=== PATIENT | female | born 1995 | race Caucasian/White ===

== ENCOUNTER 2025-01-10 09:50 | Outpatient (AMB) | payer OTHER, MEDICAID, SELFPAY ==
[2025-01-10 10:24] VITALS: BP 134/77; PULSE 77; RESP 17; TEMP 36.7; O2SAT 99; BMI 26.6
--- NOTE | 2025-01-10 10:24 | AMB.OBINITIA ---
Vital Signs 01/10/25 10:24 Height 1.63 m Height Method Measured Weight 70.307 kg Weight Measurement Method Standing Scale BMI 26.6 BP 134/77 H Blood Pressure Source Automatic Cuff Blood Pressure Location Right Upper Arm Position Sitting Respiration 17 Pulse 77 Pulse Source Monitor Temp 98.1 F Temp Source Temporal Artery Scan Pulse Oximetry (%) 99 Oxygen Delivery Method Room Air Allergies/Home Meds Allergies & Medications Allergies Latex, Natural Rubber Allergy (Unknown, Verified 06/13/22 17:24) Medication Reconciliation albuterol 90 mcg/actuation aerosol inhaler 90 mcg inhalation PRN PRN Bronchospasm 06/13/22 [History Confirmed 01/10/25] omeprazole 20 mg capsule,delayed release 20 mg PO QDAY 06/13/22 [History Confirmed 01/10/25] vitamin-ferrous fumarate 28 mg iron-folic acid 800 mcg tablet ( Vitamins with Minerals) 1 tab PO QDAY 06/13/22 [History Confirmed 01/10/25] acyclovir 200 mg/5 mL oral suspension 200 mg PO TID 01/10/25 [History Confirmed 01/10/25] levothyroxine 50 mcg tablet 50 mcg PO QDAY 01/10/25 [History Confirmed 01/10/25] Intake Visit Data Collection New Patient or Established: New Patient not seen in past [address] [facility] (considered New) Reason for Visit:: PRE CONFIRMATION\PT Consent obtained for Telemed Visit: No Seen by Clinical Staff ONLY (RN/MA): No Retail Sales Professional Required: No Do You Feel Safe at Home: Yes Authorities Contacted: N/A PCP or OBGYN visit in last 3 months: Yes Date of Last PCP or OBGYN visit: 06/15/22 Hx Now: Yes Are you currently on any form of Control: No Last menstrual period: 11/19/24 Pain Present Currently: No Pain Scale Used: Byrnes-Dowling/Numerical Pain scale:: 0 Smoking Status Smoking Status: Never smoker Questionnaires PHQ-9 PHQ-2 Over the last 2 weeks, how often have you been bothered by any of the following problems? 1. Little interest or pleasure in doing things: not at all 2. Feeling down, depressed, or hopeless: not at all Total score: 0 PHQ-9 3. Trouble falling or staying asleep, or sleeping too much: Not at all 4. Feeling tired or having little energy: Not at all 5. Poor appetite or overeating: Not at all 6. Feeling bad about yourself - or that you are a failure or have let yourself or your family down: Not at all 7. Trouble concentrating on things, such as reading the newspaper or watching television: Not at all 8. Moving or speaking so slowly that other people could have noticed? - Or the opposite - being so fidgety or restless that you have been moving around a lot more than usual: not at all 9. Thoughts that you would be better off or of hurting yourself in some way: Not at all Total score: 0 If you checked off any problems, how difficult have these problems made it for you to do your work, take care of things at home, or get along with other people?: not difficult at all Source: Developed by Drs. Yang Prescott, Aydee House, Mike Servin and colleagues, with an educational mike from [employer]. 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 Her 2-1/2-year-old daughter is also present. OB Ultrasound Indication Indication: Size dates viability OB Ultrasound Ultrasound technique: transvaginal Gestational sac assessment: Presence, location, size, shape: Live intrauterine with a crown-rump length of 0.76 cm corresponding to 6 weeks 5 days is present. 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 Sosa at [facility] with a mediolateral episiotomy. Other Relevant History: Hypothyroid on Synthroid 50 mcg a day GERD on omeprazole 40 mg a day History of cold sores on acyclovir 400 mg a day Mild asthma on albuterol inhaler daily OB Initial Visit OB Flowsheet OB Flowsheet Initial Weight: 70 kg Date <del>?</del> EGA Weight BP Alb Glu CTX Pres Fundal ht FHR Mov Dilation Station Effacement Hx Notes Visit Note 01/10/25 <del>?</del> 6w 5d 70.307 kg (+306.817 g) 134/77 95 New OB. Check official ultrasound in 2 weeks. Check labs. Menstrual History Menstrual reliability: definite Flow: heavy Menstrual regularity: regular Monthly: Yes Age at menarche: 14 On control pills at conception: No OB History : 2 Para: 1 Hx Total # of Abortions (Spontaneous & Elective): 1 # of Living Children: 1 Infection History & Risk Evaluation History of STDs: none HIV risk evaluation: low risk Hepatitis B risk evaluation: low risk Patient or partner has history of Genital Herpes: No Genetic Screening & History Genetic Screening/Teratology Counseling - Includes patient, baby's father, or anyone in either family with: 1. Patient's age 35 years or older as of estimated date of delivery: No 2. Thalassemia (Libyan, Indonesian, Mediterranean, or Background); MCV less than 80: No 3. Neural Tube Defect (Meningomyelocele, Spina Bifida, or Anencephaly): No 4. Congenital Heart Defect: No 5. Down Syndrome: No 6. Edmund-Sachs (Ashkenazi [place], Cajun, Bel[place]ian [place]): No 7. Cassie Disease (Ashkenazi Holiness): No 8. Familial Dysautonomia (Ashkenazi Holiness): No 9. Sickle Cell Disease or Trait (): No 10. Hemophilia or other blood disorders: No 11. Muscular Dystrophy: No 12. Cystic Fibrosis: No 13. Pierre's Chorea: No 14. Mental Retardation/Autism: No 15. Other inherited genetic or chromosomal disorder: No 16. Maternal Metabolic Disorder (EG,TYPE 1 Diabetes, PKU): No 17. Patient or baby's father had a child with defects not listed above: No 18. Recurrent loss or a stillbirth: No 19. Medications (including supplements, vitamins, herbs or otc drugs)/illicit/recreational drugs/alcohol since last menstrual period: No 20. Any other: No Infection History 1. Live with someone with TB or exposed to TB: No 2. Rash or viral illness since last menstrual period: No 3. Hepatitis B,C: No Other (see comments) Source: [employer] Review of Systems Review of Systems Narrative Review of Systems: Plus nausea and vomiting. No vaginal bleeding or cramping. Exam General Limitations: no limitations General Appearance: alert, in no apparent distress, comfortable, cooperative and healthy appearing Chest Chest inspection: Present normal inspection and symmetric chest wall rise Resp Respiratory exam: Present normal lung sounds bilaterally Card Cardiovascular exam: Present regular rate, normal rhythm and normal heart sounds Abdominal Abdominal exam: Present soft and normal bowel sounds Psych Psychiatric exam: Present normal affect and normal mood Skin Skin exam: Present warm, dry, intact and normal color Office Procedures OB Clinic LOC & Office Proc's Nursing/Assessment Patient Status: Established Patient OB Clinic Nursing Assessment: Medication Reconciliation, Update PMH in EMR and Vital Signs OB Clinic Coordination of Care: Complex Care and Chronic Disease 1-5, Consent,records obtained, informed consent, Education Simp Pt/Fam and Results/Orders obtained Special Needs: Heart tones Established Patient Charge Established Patient Point Assignment: 110 Established Patient Point Charge: EP Level 3 (80-115) Results Urine HCG Urine HCG Positive Last Edit by Ita Landon MA on 01/10/25 10:37 Assessment & Plan Diagnosis / Problem List (1) : Status: Acute Qualifiers: Weeks of gestation: less than 8 weeks Qualified Code(s): Z3A.01 - Less than 8 weeks gestation of Plan: Order labs. Order official ultrasound for 2 weeks. Follow-up in 4 weeks. (2) Nausea and vomiting during : Status: Acute Plan: Diclegis and Zofran prescribed, take gummy prenatals for now. Small meals. Manage GERD with medications. (3) Hypothyroidism affecting : Status: Acute Qualifiers: Trimester: first trimester Qualified Code(s): O99.281 - Endocrine, nutritional and metabolic diseases complicating , first trimester; E03.9 - Hypothyroidism, unspecified Plan: On 50 mcg of Synthroid. Has endocrine in [place] and will zoom with her provider in 2 weeks. Her endocrine will adjust thyroid as needed and check levels during . (4) Asthma complicating in first trimester: Status: Acute Plan: Refill albuterol inhaler. Additional Plan Follow Up: 4 Weeks
== END 2025-01-10 11:24 | disposition home or self-care (01) ==
PROVIDERS: PCP Obstetrics & Gynecology; Referring Provider Obstetrics & Gynecology; Supervising Provider Internal Medicine; Visit Provider Obstetrics & Gynecology
DX: O09.891 Supervision of other high risk pregnancies, first trimester (principal); O99.281 Endocrine, nutritional and metabolic diseases complicating pregnancy, first trimester; E03.9 Hypothyroidism, unspecified; O99.511 Diseases of the respiratory system complicating pregnancy, first trimester; J45.909 Unspecified asthma, uncomplicated; O99.611 Diseases of the digestive system complicating pregnancy, first trimester; K21.9 Gastro-esophageal reflux disease without esophagitis; O21.9 Vomiting of pregnancy, unspecified; Z3A.01 Less than 8 weeks gestation of pregnancy; Z79.899 Other long term (current) drug therapy; Z79.890 Hormone replacement therapy
CPT/HCPCS: 99213; G0463

== ENCOUNTER → 2025-01-10 | Outpatient (CLI) | payer OTHER, MEDICAID, SELFPAY ==
[2025-01-10 12:04] LABS: Misc Send Out* See Sep Rpt
[2025-01-10 12:54] LABS: Basophils # (Auto) 0.1 Thou/mm3 (0.0-0.2); Basophils % (Auto) 1 % (0-2.5); Eosinophils # (Auto) 0.1 Thou/mm3 (0.0-0.5); Eosinophils % (Auto) 1 % (0-10); Hematocrit 38.0 % (36.0-46.0); Hemoglobin 13.7 g/dL (12.0-16.0); Immature Granulocytes Auto 0.05 Thou/mm3 (0.00-0.00); Lymphocytes # (Auto) 3.1 Thou/mm3 (1.0-4.8); Lymphocytes % (Auto) 27 % (10-50); Mean Corpuscular HGB Conc 36.1 g/dl (31.0-37.0); Mean Corpuscular Hemoglobin 31.1 pg (25.0-35.0); Mean Corpuscular Volume 86 fL (80-100); Monocytes # (Auto) 0.5 Thou/mm3 (0.0-0.8); Monocytes % (Auto) 5 % (0-12); Neutrophils # (Auto) 7.5 Thou/mm3 (1.8-7.7); Neutrophils % (Auto) 66 % (37-80); Nucleated Red Blood Cell # 0.00 Thou/mm3 (0.00-0.00); Nucleated Red Blood Cell % 0 /100 WBC (0); Platelet Count 340 Thou/mm3 (140-440); RDW Standard Deviation 38.2 fL (36.4-46.3); Red Blood Count 4.41 Miln/mm3 (4.00-5.20); White Blood Count 11.3 Thou/mm3 (3.6-11.0)
[2025-01-10 13:25] LABS: Syphilis Nonreactive (Nonreactive)
[2025-01-10 13:49] LABS: Hepatitis B Surface Antigen Non Reactive (Non React); Hepatitis C Antibody Non Reactive (Non React); Rubella, IgG Antibody Reactive (Immune)
[2025-01-10 15:45] LABS: Chlamydia trachomatis PCR Negative (Not Detect); Neisseria Gonorrhoeae DNA PCR Negative (Not Detect); Trichomonas Negative (Negative)
[2025-01-10 17:06] LABS: HIV (1&2) Antibody Rapid Non-Reactive
[2025-01-14 06:44] LABS: Sm Antibody* <1.0 NEG AI (<1.0 NEGATIVE)
== END | disposition home or self-care (01) ==
PROVIDERS: PCP Nurse Practitioner Family; Referring Provider Obstetrics & Gynecology; Visit Provider Obstetrics & Gynecology
DX: Z01.89 Encounter for other specified special examinations (principal)
CPT/HCPCS: 36415; 81220; 85025; 86235; 86703; 86762; 86780; 86803; 86850; 86900; 86901; 87086; 87340; 87491; 87591; 87661

== ENCOUNTER 2025-02-18 10:50 | Outpatient (AMB) | payer OTHER, MEDICAID, SELFPAY ==
[2025-02-18 11:04] VITALS: BP 118/72; PULSE 92; RESP 16; TEMP 36.2; O2SAT 98; BMI 26.6
--- NOTE | 2025-02-18 11:04 | OBCLNT_ITS ---
Vital Signs 02/18/25 11:04 Height 1.63 m Height Method Stated Weight 70.76 kg Weight Measurement Method Standing Scale BMI 26.6 BP 118/72 Blood Pressure Source Automatic Cuff Blood Pressure Location Left Upper Arm Position Sitting Respiration 16 Pulse 92 Pulse Source Monitor Temp 97.2 F Temp Source Oral Pulse Oximetry (%) 98 Oxygen Delivery Method Room Air Allergies/Home Meds Allergies & Medications Allergies Latex, Natural Rubber Allergy (Unknown, Verified 02/18/25 11:05) Medication Reconciliation albuterol 90 mcg/actuation aerosol inhaler 90 mcg inhalation PRN PRN Bronchospasm 06/13/22 [History Confirmed 02/18/25] omeprazole 20 mg capsule,delayed release 20 mg PO QDAY 06/13/22 [History Confirmed 02/18/25] vitamin-ferrous fumarate 28 mg iron-folic acid 800 mcg tablet ( Vitamins with Minerals) 1 tab PO QDAY 06/13/22 [History Confirmed 02/18/25] acyclovir 200 mg/5 mL oral suspension 200 mg PO TID 01/10/25 [History Confirmed 02/18/25] levothyroxine 50 mcg tablet 50 mcg PO QDAY 01/10/25 [History Confirmed 02/18/25] Intake Visit Data Collection New Patient or Established: Established Patient (seen at [facility] within 3 years) Reason for Visit:: OBC Seen by Clinical Staff ONLY (RN/MA): No Chemical Lab Technician Required: No Do You Feel Safe at Home: Yes Authorities Contacted: N/A PCP or OBGYN visit in last 3 months: Yes Date of Last PCP or OBGYN visit: 01/10/25 Hx Now: Yes Are you currently on any form of Control: No Pain Present Currently: No Pain Scale Used: Byrnes-Dowling/Numerical Pain scale:: 0 Smoking Status Smoking Status: Never smoker Questionnaires Covid-19 Vaccine Questionnaire Has patient been vacinated for Covid-19 Have you been vacinated for Covid-19: Yes PHQ-9 PHQ-2 Over the last 2 weeks, how often have you been bothered by any of the following problems? 1. Little interest or pleasure in doing things: not at all 2. Feeling down, depressed, or hopeless: not at all Total score: 0 PHQ-9 3. Trouble falling or staying asleep, or sleeping too much: Not at all 4. Feeling tired or having little energy: Not at all 5. Poor appetite or overeating: Not at all 6. Feeling bad about yourself - or that you are a failure or have let yourself or your family down: Not at all 7. Trouble concentrating on things, such as reading the newspaper or watching television: Not at all 8. Moving or speaking so slowly that other people could have noticed? - Or the opposite - being so fidgety or restless that you have been moving around a lot more than usual: not at all 9. Thoughts that you would be better off or of hurting yourself in some way: Not at all Total score: 0 If you checked off any problems, how difficult have these problems made it for you to do your work, take care of things at home, or get along with other people?: not difficult at all Source: Developed by Drs. Yang Prescott, Aydee House, Mike Servin and colleagues, with an educational mike from [employer]. 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 Check official ultrasound in 2 weeks. Check labs. 02/18/25 -?-?-?-?-?-?-?-?-?-?-?-?- 12w 2d 70.76 kg (+760.409 g) 118/72 13 145 +FM No UCs or VB Desires NIPT RYAN Calculator Estimated Delivery Date Method Current WG Current Estimate 08/31/25 Ultrasound #1 12w 2d Other Estimates 08/26/25 LMP (Uncertain) 13w 0d Expected Delivery Route/Plan 29-year-old -0-0-1 History of vaginal delivery x 1 Anticipate vaginal delivery Notes Visit Date: 02/18/25 Last Updated by: Ines Nielsen (OB Clinic)MD [facility] labs: O+/antibody negative/ hepatitis B surface antigen negative /GC negative /Chlamydia negative /rubella immune/ RPR nonreactive/ hepatitis C- ultrasound done today revealing a 13-week IUP With an EDC of 08/26/2024. Visit Date: 01/10/25 Last Updated by: Ines Nielsen (OB Clinic)MD Patient has an endocrine managing her thyroid in [place]. She needs a refill on her albuterol inhaler. She also was nauseous and I will prescribe Diclegis and Zofran. Office Procedures OB Clinic LOC & Office Proc's Nursing/Assessment Patient Status: Established Patient OB Clinic Nursing Assessment: Medication Reconciliation, Update PMH in EMR and Vital Signs OB Clinic Coordination of Care: Education Complex Pt/Fam, Consent,records obtained, informed consent, Lab and Imaging orders, Results/Orders obtained and Staff clarify orders Special Needs: Heart tones Established Patient Charge Established Patient Point Assignment: 115 Established Patient Point Charge: EP Level 3 (80-115) Assessment & Plan Diagnosis / Problem List (1) Hypothyroidism affecting : Status: Acute Qualifiers: Trimester: first trimester Qualified Code(s): O99.281 - Endocrine, nutritional and metabolic diseases complicating , first trimester; E03.9 - Hypothyroidism, unspecified Plan: Has endocrinology provider in [place] managing (2) Nausea and vomiting during : Status: Acute Plan: Has Diclegis. Doing well. (3) : Status: Acute Qualifiers: Weeks of gestation: 13 weeks Qualified Code(s): Z3A.13 - 13 weeks gestation of
== END 2025-02-18 11:48 | disposition home or self-care (01) ==
PROVIDERS: Supervising Provider Obstetrics & Gynecology; Visit Provider Obstetrics & Gynecology
DX: O09.891 Supervision of other high risk pregnancies, first trimester (principal); O99.281 Endocrine, nutritional and metabolic diseases complicating pregnancy, first trimester; E03.9 Hypothyroidism, unspecified; O21.9 Vomiting of pregnancy, unspecified; Z3A.12 12 weeks gestation of pregnancy; Z91.048 Other nonmedicinal substance allergy status
CPT/HCPCS: 99213; G0463

== ENCOUNTER 2025-03-18 13:08 | Outpatient (AMB) | payer OTHER, MEDICAID, SELFPAY ==
[2025-03-18 13:25] VITALS: BP 124/76; PULSE 91; RESP 18; TEMP 36.2; O2SAT 98; BMI 27.5
--- NOTE | 2025-03-18 13:25 | OBCLNT_ITS ---
Vital Signs 03/18/25 13:25 Height 1.63 m Height Method Stated Weight 73.085 kg Weight Measurement Method Standing Scale BMI 27.5 BP 124/76 Blood Pressure Source Automatic Cuff Blood Pressure Location Left Upper Arm Position Sitting Respiration 18 Pulse 91 Pulse Source Monitor Temp 97.2 F Temp Source Oral Pulse Oximetry (%) 98 Oxygen Delivery Method Room Air Allergies/Home Meds Allergies & Medications Allergies Latex, Natural Rubber Allergy (Unknown, Verified 03/18/25 13:27) Medication Reconciliation albuterol 90 mcg/actuation aerosol inhaler 90 mcg inhalation PRN PRN Bronchospasm 06/13/22 [History Confirmed 03/18/25] omeprazole 20 mg capsule,delayed release 20 mg PO QDAY 06/13/22 [History Confirmed 03/18/25] vitamin-ferrous fumarate 28 mg iron-folic acid 800 mcg tablet ( Vitamins with Minerals) 1 tab PO QDAY 06/13/22 [History Confirmed 03/18/25] acyclovir 200 mg/5 mL oral suspension 200 mg PO TID 01/10/25 [History Confirmed 03/18/25] levothyroxine 50 mcg tablet 50 mcg PO QDAY 01/10/25 [History Confirmed 03/18/25] Intake Visit Data Collection New Patient or Established: Established Patient (seen at [facility] within 3 years) Reason for Visit:: obc Seen by Clinical Staff ONLY (RN/MA): No Locomotive Engineer Required: No Do You Feel Safe at Home: Yes Authorities Contacted: N/A PCP or OBGYN visit in last 3 months: Yes Date of Last PCP or OBGYN visit: 02/18/25 Hx Now: Yes Are you currently on any form of Control: No Pain Present Currently: No Pain Scale Used: Byrnes-Dowling/Numerical Pain scale:: 0 Smoking Status Smoking Status: Never smoker Questionnaires Covid-19 Vaccine Questionnaire Has patient been vacinated for Covid-19 Have you been vacinated for Covid-19: No PHQ-9 PHQ-2 Over the last 2 weeks, how often have you been bothered by any of the following problems? 1. Little interest or pleasure in doing things: not at all 2. Feeling down, depressed, or hopeless: not at all Total score: 0 PHQ-9 3. Trouble falling or staying asleep, or sleeping too much: Not at all 4. Feeling tired or having little energy: Not at all 5. Poor appetite or overeating: Not at all 6. Feeling bad about yourself - or that you are a failure or have let yourself or your family down: Not at all 7. Trouble concentrating on things, such as reading the newspaper or watching television: Not at all 8. Moving or speaking so slowly that other people could have noticed? - Or the opposite - being so fidgety or restless that you have been moving around a lot more than usual: not at all 9. Thoughts that you would be better off or of hurting yourself in some way: Not at all Total score: 0 If you checked off any problems, how difficult have these problems made it for you to do your work, take care of things at home, or get along with other people?: not difficult at all Source: Developed by Drs. Yang Prescott, Aydee House, Mike Servin and colleagues, with an educational mike from [employer]. 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 Check official ultrasound in 2 weeks. Check labs. 02/18/25 -?-?-?-?-?-?-?-?-?-?-?-?- 12w 2d 70.76 kg (+760.409 g) 118/72 13 145 +FM No UCs or VB Desires NIPT 03/18/25 -?-?-?-?-?-?-?-?-?-?-?-?- 16w 2d 73.085 kg (+3085.07 g) 124/76 16 167 Positive flutter. No contractions or vaginal bleeding. NIPT 46 XY RYAN Calculator Estimated Delivery Date Method Current WG Current Estimate 08/31/25 Ultrasound #1 17w 0d Other Estimates 08/26/25 LMP (Uncertain) 17w 5d Expected Delivery Route/Plan 29-year-old -0-0-1 History of vaginal delivery x 1, a girl, 7'[address] [facility] Dr Sosa delivered. + epidural. No complications Anticipate vaginal delivery Specific Issue/Plans NIPT 46 XY Hypothyroid on 50 ug synthroid Mild asthma :has albuterol inhaler Frequent cold sores, no genital HPV has acylovir for treatment Notes Visit Date: 03/18/25 Last Updated by: Ines Nielsen (OB Clinic)MD Structural survey scheduled at [facility]. Visit Date: 02/18/25 Last Updated by: Ines Nielsen (OB Clinic)MD [facility] labs: O+/antibody negative/ hepatitis B surface antigen negative /GC negative /Chlamydia negative /rubella immune/ RPR nonreactive/ hepatitis C- ultrasound done today revealing a 13-week IUP With an EDC of 08/26/2024. Visit Date: 01/10/25 Last Updated by: Ines Nielsen (OB Clinic)MD Patient has an endocrine managing her thyroid in [place]. She needs a refill on her albuterol inhaler. She also was nauseous and I will prescribe Diclegis and Zofran. Office Procedures OBC Clinic LOC & Office Proc's Nursing/Assessment Patient Status: Established Patient OB Clinic Nursing Assessment: Medication Reconciliation, Update PMH in EMR and Vital Signs OB Clinic Coordination of Care: Consent,records obtained, informed consent, Education Simp Pt/Fam, Lab and Imaging orders, Results/Orders obtained and Staff clarify orders Special Needs: Heart tones Established Patient Charge Established Patient Point Assignment: 110 Established Patient Point Charge: EP Level 3 (80-115) Assessment & Plan Diagnosis / Problem List (1) : Status: Acute Qualifiers: Weeks of gestation: 16 weeks Qualified Code(s): Z3A.16 - 16 weeks gestation of (2) Hypothyroidism affecting : Status: Acute Qualifiers: Trimester: second trimester Qualified Code(s): O99.282 - Endocrine, nutritional and metabolic diseases complicating , second trimester; E03 .9 - Hypothyroidism, unspecified Plan: MD in [place] managing thyroid. Plan NIPT normal. Ordered structural survey. Follow-up in 4 weeks. Additional Plan Follow Up: 4 Weeks
== END 2025-03-18 13:53 | disposition home or self-care (01) ==
PROVIDERS: Supervising Provider Obstetrics & Gynecology; Visit Provider Obstetrics & Gynecology
DX: O09.892 Supervision of other high risk pregnancies, second trimester (principal); O99.282 Endocrine, nutritional and metabolic diseases complicating pregnancy, second trimester; E03.9 Hypothyroidism, unspecified; O99.512 Diseases of the respiratory system complicating pregnancy, second trimester; J45.909 Unspecified asthma, uncomplicated; Z3A.16 16 weeks gestation of pregnancy; Z79.890 Hormone replacement therapy; Z91.040 Latex allergy status
CPT/HCPCS: 99213; G0463

== ENCOUNTER 2025-04-14 09:14 | Outpatient (AMB) | payer OTHER, MEDICAID, SELFPAY ==
[2025-04-14 09:18] VITALS: BP 118/72; PULSE 87; RESP 18; TEMP 36.2; O2SAT 98; BMI 28.2
--- NOTE | 2025-04-14 09:18 | AMB.OBVISIT ---
Vital Signs 04/14/25 09:18 Height 1.63 m Height Method Stated Weight 74.956 kg Weight Measurement Method Standing Scale BMI 28.2 BP 118/72 Blood Pressure Source Automatic Cuff Blood Pressure Location Left Upper Arm Position Sitting Respiration 18 Pulse 87 Pulse Source Monitor Temp 97.2 F Temp Source Oral Pulse Oximetry (%) 98 Oxygen Delivery Method Room Air Allergies/Home Meds Allergies & Medications Allergies Latex, Natural Rubber Allergy (Unknown, Verified 04/14/25 09:19) Medication Reconciliation albuterol 90 mcg/actuation aerosol inhaler 90 mcg inhalation PRN PRN Bronchospasm 06/13/22 [History Confirmed 04/14/25] omeprazole 20 mg capsule,delayed release 20 mg PO QDAY 06/13/22 [History Confirmed 04/14/25] vitamin-ferrous fumarate 28 mg iron-folic acid 800 mcg tablet ( Vitamins with Minerals) 1 tab PO QDAY 06/13/22 [History Confirmed 04/14/25] acyclovir 200 mg/5 mL oral suspension 200 mg PO TID 01/10/25 [History Confirmed 04/14/25] levothyroxine 50 mcg tablet 50 mcg PO QDAY 01/10/25 [History Confirmed 04/14/25] Intake Visit Data Collection New Patient or Established: Established Patient (seen at [facility] within 3 years) Reason for Visit:: OBC Seen by Clinical Staff ONLY (RN/MA): No 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: No Do You Feel Safe at Home: Yes Authorities Contacted: N/A PCP or OBGYN visit in last 3 months: Yes Date of Last PCP or OBGYN visit: 03/18/25 Hx Now: Yes Are you currently on any form of Control: No Pain Present Currently: No Pain Scale Used: Byrnes-Dowling/Numerical Pain scale:: 0 Smoking Status Smoking Status: Never smoker Immunizations Flu Vaccine in the Last 12 Months: No Flu Vaccine Exclusion Criteria: Refused by Patient Questionnaires Covid-19 Vaccine Questionnaire Has patient been vacinated for Covid-19 Have you been vacinated for Covid-19: Yes PHQ-9 PHQ-2 Over the last 2 weeks, how often have you been bothered by any of the following problems? 1. Little interest or pleasure in doing things: not at all 2. Feeling down, depressed, or hopeless: not at all Total score: 0 PHQ-9 3. Trouble falling or staying asleep, or sleeping too much: Not at all 4. Feeling tired or having little energy: Not at all 5. Poor appetite or overeating: Not at all 6. Feeling bad about yourself - or that you are a failure or have let yourself or your family down: Not at all 7. Trouble concentrating on things, such as reading the newspaper or watching television: Not at all 8. Moving or speaking so slowly that other people could have noticed? - Or the opposite - being so fidgety or restless that you have been moving around a lot more than usual: not at all 9. Thoughts that you would be better off or of hurting yourself in some way: Not at all Total score: 0 If you checked off any problems, how difficult have these problems made it for you to do your work, take care of things at home, or get along with other people?: not difficult at all Source: Developed by Drs. Yang Prescott, Aydee House, Mike Servin and colleagues, with an educational mike from [employer]. 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 Check official ultrasound in 2 weeks. Check labs. 02/18/25 <del>?</del> 12w 2d 70.76 kg (+760.409 g) 118/72 13 145 +FM No UCs or VB Desires NIPT 03/18/25 <del>?</del> 16w 2d 73.085 kg (+3085.07 g) 124/76 16 167 Positive flutter. No contractions or vaginal bleeding. NIPT 46 XY 04/14/25 <del>?</del> 20w 1d 74.956 kg (+4956.139 g) 118/72 absent unknown 20 156 active Patient reports thyroids are in control. She sees a youth counselor in [place]. Ultrasounds are pending. Reports movement. Discussed NIPT and labs. labor precautions reviewed. Patient will going to [facility] to schedule an appointment and return in 4 weeks OB to RYAN Calculator Estimated Delivery Date Method Current WG Current Estimate 08/31/25 Ultrasound #1 20w 1d Other Estimates 08/26/25 LMP (Uncertain) 20w 6d Expected Delivery Route/Plan 29-year-old -0-0-1 History of vaginal delivery x 1, a girl, 7'13 oz. At [facility]. Dr Sosa delivered. + epidural. 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 Visit Date: 02/18/25 Last Updated by: Ines Nielsen (OB Clinic)MD [facility] labs: O+/antibody negative/ hepatitis B surface antigen negative /GC negative /Chlamydia negative /rubella immune/ RPR nonreactive/ hepatitis C- ultrasound done today revealing a 13-week IUP With an EDC of 08/26/2024. Visit Date: 01/10/25 Last Updated by: Ines Nielsen (OB Clinic)MD Patient has an endocrine managing her thyroid in [place]. She needs a refill on her albuterol inhaler. She also was nauseous and I will prescribe Diclegis and Zofran. Office Procedures OBC Clinic LOC & Office Proc's Nursing/Assessment Patient Status: Established Patient OB Clinic Nursing Assessment: Medication Reconciliation, Update PMH in EMR and Vital Signs OB Clinic Coordination of Care: Consent,records obtained, informed consent, Education Simp Pt/Fam, Lab and Imaging orders, Results/Orders obtained and Staff clarify orders Special Needs: Heart tones Established Patient Charge Established Patient Point Assignment: 110 Established Patient Point Charge: EP Level 3 (80-115) Assessment & Plan Diagnosis / Problem List (1) Encounter for supervision of high risk in second trimester, antepartum: Status: Acute Plan Discussed labs. Advised patient to go personally into [facility] to schedule appointment. Discussed labor precautions. Return in 4 weeks OB check. check TSH nv Additional Plan Follow Up: 4 Weeks (obc)
== END 2025-04-14 09:58 | disposition home or self-care (01) ==
LOC: HODSOBC 09:14
PROVIDERS: Supervising Provider Advanced Practice Midwife; Visit Provider Advanced Practice Midwife
DX: O09.892 Supervision of other high risk pregnancies, second trimester (principal); O99.282 Endocrine, nutritional and metabolic diseases complicating pregnancy, second trimester; E03.9 Hypothyroidism, unspecified; O99.512 Diseases of the respiratory system complicating pregnancy, second trimester; J45.909 Unspecified asthma, uncomplicated; Z3A.20 20 weeks gestation of pregnancy; Z79.890 Hormone replacement therapy
CPT/HCPCS: 99213; G0463

== ENCOUNTER 2025-05-31 10:44 | Outpatient (AMB) | payer OTHER, MEDICAID, SELFPAY ==
[2025-05-31 11:09] VITALS: BP 118/77; PULSE 97; RESP 18; TEMP 36.6; O2SAT 98; BMI 29.5
--- NOTE | 2025-05-31 11:09 | OBCLNT_ITS ---
Vital Signs 05/31/25 11:09 Height 1.63 m Height Method Stated Weight 78.585 kg Weight Measurement Method Standing Scale BMI 29.5 BP 118/77 Blood Pressure Source Automatic Cuff Blood Pressure Location Left Upper Arm Position Sitting Respiration 18 Pulse 97 Pulse Source Monitor Temp 97.8 F Temp Source Oral Pulse Oximetry (%) 98 Oxygen Delivery Method Room Air Allergies/Home Meds Allergies & Medications Allergies Latex, Natural Rubber Allergy (Unknown, Verified 05/31/25 11:10) Medication Reconciliation albuterol 90 mcg/actuation aerosol inhaler 90 mcg inhalation PRN PRN Bronchospasm 06/13/22 [History Confirmed 05/31/25] omeprazole 20 mg capsule,delayed release 20 mg PO QDAY 06/13/22 [History Confirmed 05/31/25] vitamin-ferrous fumarate 28 mg iron-folic acid 800 mcg tablet ( Vitamins with Minerals) 1 tab PO QDAY 06/13/22 [History Confirmed 05/31/25] acyclovir 200 mg/5 mL oral suspension 200 mg PO TID 01/10/25 [History Confirmed 05/31/25] levothyroxine 50 mcg tablet 50 mcg PO QDAY 01/10/25 [History Confirmed 05/31/25] clotrimazole 1 % vaginal cream (Gyne-Lotrimin 7) 1 appful vaginal QHS #45 grams 05/31/25 [Rx] metronidazole 500 mg tablet 500 mg PO BID 7 days #14 tabs 05/31/25 [Rx] Immunizations Immunizations Flu Vaccine in the Last 12 Months: No Flu Vaccine Exclusion Criteria: Refused by Patient Care OB Visit Log OB Flowsheet Initial Weight: 70 kg Date -?-?-?-?-?-?-?-?-?-?-?-?- EGA Weight BP Alb Glu CTX Pres Fundal ht FHR Mov Dilation Station Effacement Hx Notes Visit Note 01/10/25 -?-?-?-?-?-?-?-?-?-?-?-?- 6w 5d 70.307 kg (+306.817 g) 134/77 95 New OB. Check official ultrasound in 2 weeks. Check labs. 02/18/25 -?-?-?-?-?-?-?-?-?-?-?-?- 12w 2d 70.76 kg (+760.409 g) 118/72 13 145 +FM No UCs or VB Desires NIPT 03/18/25 -?-?-?-?-?-?-?-?-?-?-?-?- 16w 2d 73.085 kg (+3085.07 g) 124/76 16 167 Positive flutter. No contractions or vaginal bleeding. NIPT 46 XY 04/14/25 -?-?-?-?-?-?-?-?-?-?-?-?- 20w 1d 74.956 kg (+4956.139 g) 118/72 absent unknown 20 156 act [place] Patient reports thyroids are in control. She sees a inorganic chemical technician in [place]. Ultrasounds are pending. Reports movement. Discussed NIPT and labs. labor precautions reviewed. Patient will going to [facility] to schedule an appointment and return in 4 weeks OB to 05/31/25 -?-?-?-?-?-?-?-?-?-?-?-?- 26w 6d 78.585 kg (+8584.878 g) 118/77 absent unknown 26 156 act [place] Complains of vaginal itching and discharge. Reports good movement. Denies leaking and bleeding, denies contractions Sc hedule follow-up ultrasound at 32 weeks for growth. Patient will continue to follow-up with her inorganic chemical technician in [place] and her PCP for her thyroid. Continue levothyroxine 50 mcg daily. Get third trimester labs today with TSH and T4.. NuSwab plus today. 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 twice daily. Return in 4 weeks OB check RYAN Calculator Estimated Delivery Date Method Current WG Current Estimate 08/31/25 Ultrasound #1 26w 6d Other Estimates 08/26/25 LMP (Uncertain) 27w 4d 08/24/25 Ultrasound #2 27w 6d 08/31/25 Manual 26w 6d final ryan Expected Delivery Route/Plan 29-year-old -0-0-1 History of vaginal delivery x 1, a girl, 7'13 oz. At [facility]. Dr Sosa delivered. + epidural. 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 Visit Date: 02/18/25 Last Updated by: Ines Nielsen (OB Clinic)MD [facility] labs: O+/antibody negative/ hepatitis B surface antigen negative /GC negative /Chlamydia negative /rubella immune/ RPR nonreactive/ hepatitis C- ultrasound done today revealing a 13-week IUP With an EDC of 08/26/2024. Visit Date: 01/10/25 Last Updated by: Ines Nielsen (OB Clinic)MD Patient has an endocrine managing her thyroid in [place]. She needs a refill on her albuterol inhaler. She also was nauseous and I will prescribe Diclegis and Zofran. Office Procedures OBC Clinic LOC & Office Proc's Nursing/Assessment Patient Status: Established Patient OB Clinic Nursing Assessment: Medication Reconciliation, Update PMH in EMR and Vital Signs OB Clinic Coordination of Care: Complex Care and Chronic Disease 1-5, Consent,records obtained, informed consent, Education Simp Pt/Fam, 1 Ins Authori zation, Lab and Imaging orders, Results/Orders obtained and Staff clarify orders Special Needs: Heart tones Established Patient Charge Established Patient Point Assignment: 150 Established Patient Point Charge: EP Level 4 (120-155) Assessment & Plan Diagnosis / Problem List (1) Encounter for supervision of high risk in second trimester, antepartum: Status: Acute (2) Hypothyroidism affecting : Status: Acute Qualifiers: Trimester: second trimester Qualified Code(s): O99.282 - Endocrine, nutritional and metabolic diseases complicating , second trimester; E03.9 - Hypothyroidism, unspecified (3) Vaginitis: Status: Acute Qualifiers: Chronicity: acute Qualified Code(s): N76.0 - Acute vaginitis Plan nuswab plus, 3rd trimester labs, TSH and T4, comfort measure for avginitis, gynelotrimin x 7, flagyl 500 bid x7, discuss ptl precaution. f/u growth at 32 week Additional Plan Follow Up: 3 Weeks (obc)
== END 2025-05-31 11:49 | disposition home or self-care (01) ==
LOC: HODSOBC 10:44
PROVIDERS: Supervising Provider Advanced Practice Midwife; Visit Provider Advanced Practice Midwife
DX: O09.892 Supervision of other high risk pregnancies, second trimester (principal); O99.282 Endocrine, nutritional and metabolic diseases complicating pregnancy, second trimester; E03.9 Hypothyroidism, unspecified; O23.592 Infection of other part of genital tract in pregnancy, second trimester; N76.0 Acute vaginitis; Z3A.26 26 weeks gestation of pregnancy; Z79.890 Hormone replacement therapy; Z28.21 Immunization not carried out because of patient refusal
CPT/HCPCS: 99214; G0463